=== PATIENT | male | born 1995 | race Caucasian/White ===

== ENCOUNTER 2019-10-25 17:20 | Emergency (ER) | payer OTHER ==
[~2019-10-25] VITALS: Ht 185.4 cm; Wt 127.0 kg
[2019-10-25] MEDS ORDERED: ADDERALL XR 3030 MG PO (18:28)
[2019-10-25] MEDS ORDERED: NORCO 10-325 T1 EACH PO (19:06)
[2019-10-25 19:47] VITALS: BP 119/74
== END 2019-10-25 20:21 | disposition home or self-care (01) ==
LOC: ER 17:20
DX: S43.084A Other dislocation of right shoulder joint, initial encounter (principal); F12.90 Cannabis use, unspecified, uncomplicated; Z79.899 Other long term (current) drug therapy; X50.1XXA Overexertion from prolonged static or awkward postures, initial encounter; Y93.11 Activity, swimming; Y92.89 Other specified places as the place of occurrence of the external cause; Y99.9 Unspecified external cause status